=== PATIENT | male | born 1970 | race Caucasian/White ===

== ENCOUNTER 2017-05-28 12:34 | Emergency (ER) | payer BC ==
[~2017-05-28] VITALS: Ht 170.2 cm; Wt 90.3 kg
[2017-05-28 12:58] VITALS: Ht 170.2 cm; Wt 90.3 kg
[2017-05-28 18:26] VITALS: BP 120/82
== END 2017-05-28 18:53 | disposition home or self-care (01) ==
LOC: ED 12:34
DX: S16.1XXA Strain of muscle, fascia and tendon at neck level, initial encounter (principal); E11.9 Type 2 diabetes mellitus without complications; M54.9 Dorsalgia, unspecified; W11.XXXA Fall on and from ladder, initial encounter; Y93.89 Activity, other specified; Y92.89 Other specified places as the place of occurrence of the external cause; Y99.8 Other external cause status
CPT/HCPCS: Q0162